=== PATIENT | male | born 2000 | race Caucasian/White ===

== ENCOUNTER 2023-06-09 21:22 | Inpatient (IN) | payer MEDICAID, OTHER ==
[~2023-06-09] VITALS: Ht 162.6 cm; Wt 102.0 kg
[2023-06-09] MEDS ORDERED: LORazepam 2 MG/ML VIAL ONE (22:01)
[2023-06-09] MEDS ORDERED: HALOPERIDOL LACTATE 5 MG/ML VIAL ONE (22:01)
[2023-06-09] MEDS ORDERED: DiphenhydrAMINE HCL 50 MG/ML VIAL ONE (22:01)
[2023-06-09] MEDS ORDERED: ARIP5TAB37 PO (22:09)
[2023-06-09] MEDS ORDERED: TRAZ-252 PO (22:09)
[2023-06-09] MEDS ORDERED: CLON0.1T PO (22:09)
[2023-06-09] MEDS ORDERED: HALOPERIDOL LACTATE 5 MG/ML VIAL IM ONE (22:15)
[2023-06-09] MEDS ORDERED: DiphenhydrAMINE HCL 50 MG/ML VIAL IM ONE (22:15)
[2023-06-09] MEDS ORDERED: LORazepam 2 MG/ML VIAL IM ONE (22:15)
[2023-06-09 23:16] LABS: COVID AG,FIA SOURCE NASAL SWAB
[2023-06-09 23:22] LABS: BASOPHILS % (AUTO) 0.3 % (0.0-2.0); EOSINOPHILS % (AUTO) 0.2 % (1.0-6.0); HEMATOCRIT 35.7 % (41-53); HEMOGLOBIN 11.9 g/dL (13.5-17.5); LYMPHOCYTES # (AUTO) 1.3 K/uL (1.0-4.8); LYMPHOCYTES % (AUTO) 8.5 % (22.0-44.0); MEAN CORPUSCULAR HEMOGLOBIN 28.3 pg (26.0-34.0); MEAN CORPUSCULAR HGB CONC 33.3 G/dL (31.0-37.0); MEAN CORPUSCULAR VOLUME 85 fL (80-100); MONOCYTES % (AUTO) 6.5 % (2.0-9.0); NEUTROPHILS % (AUTO) 84.5 % (40.0-70.0); PLATELET COUNT (AUTO) 362 K/uL (150-450); RED CELL DISTRIBUTION WIDTH 14.3 % (11.5-14.5); WHITE BLOOD COUNT (AUTO) 15.4 K/uL (4.5-11.0)
[2023-06-09 23:35] LABS: SARS-COV2 (COVID) ANTIGEN,FIA Negative (Negative)
[2023-06-09 23:39] LABS: ALCOHOL, BLOOD (SERUM) < 3 mg/dL (0-10)
[2023-06-10 00:18] LABS: ANION GAP 10 mmol/L (8-16); CALCIUM, TOTAL 9.2 mg/dL (8.8-10.5); CARBON DIOXIDE 27 mmol/L (22-29); CHLORIDE 109 mmol/L (98-107); CREATININE 0.84 mg/dL (0.60-1.30); GLOMERULAR FILTR. RATE CALC > 60 mL/min (>60); GLUCOSE,RANDOM 125 mg/dL (70-110); POTASSIUM 3.8 mmol/L (3.5-5.1); SODIUM SERUM 146 mmol/L (136-145); UREA NITROGEN, BLOOD 16 mg/dL (7-18)
[2023-06-10 00:25] LABS: ALANINE AMINOTRANSFERASE 81 U/L (12-78); ALBUMIN 3.7 g/dL (3.4-5.0); ALKALINE PHOSPHATASE 66 U/L (46-116); ASPARTATE AMINOTRANSFERASE 43 U/L (15-37); BILIRUBIN,TOTAL 0.2 mg/dL (0.1-1.0); TOTAL PROTEIN, SERUM 8.1 g/dL (6.4-8.2)
[2023-06-10] MEDS ORDERED: ZOLPIDEM TARTRATE 10 MG TABLET PO PRN (01:15)
[2023-06-10] MEDS ORDERED: HALOPERIDOL 5 MG TABLET PO PRN (01:15)
[2023-06-10] MEDS ORDERED: LORazepam 2 MG TABLET PO PRN (01:15)
[2023-06-11 23:07] VITALS: BP 157/85; PULSE 72; RESP 19; TEMP 97.3; O2SAT 97
[2023-06-11 23:31] VITALS: BP 157/85; PULSE 72; RESP 19; TEMP 97.3
[2023-06-11 23:39] VITALS: BP 157/85; PULSE 72; RESP 20; TEMP 97.3
[2023-06-12] MEDS: CloNIDine HCL 0.1 MG TABLET PO SCH ×2 (09:00→17:00)
[2023-06-12 09:46] VITALS: BP 150/88; PULSE 83; RESP 18; TEMP 97.8
[2023-06-12] MEDS: ARIPiprazole 10 MG TABLET PO SCH (14:00)
[2023-06-12] MEDS ORDERED: ACETAMINOPHEN 325 MG TABLET PO PRN (15:30)
[2023-06-12] MEDS ORDERED: PETROLATUM,WHITE 28 GM JELLY TP PRN (15:30)
[2023-06-12] MEDS ORDERED: DOCUSATE SODIUM 100 MG CAPSULE PO PRN (15:30)
[2023-06-12] MEDS ORDERED: ALBUTEROL SULFATE HFA 90 MCG/PUFF 8 GM INHALER IH PRN (15:30)
[2023-06-12] MEDS ORDERED: GuaiFENesin/D-METHORPHAN [SUGAR-FREE] 200-20MG/10 ML SYRUP UDCUP PO PRN (15:30)
[2023-06-12] MEDS ORDERED: IBUPROFEN 400 MG TABLET PO PRN (15:30)
[2023-06-12] MEDS ORDERED: ONDANSETRON HCL 4 MG TABLET PO PRN (15:30)
[2023-06-12] MEDS ORDERED: NICOTINE 14 MG/24 HOUR PATCH TD PRN (15:30)
[2023-06-12] MEDS ORDERED: MAGNESIUM HYDROXIDE SUSPENSION 30 ML UDCUP PO PRN (15:30)
[2023-06-12] MEDS ORDERED: MAG HYDROX/ALUMINUM HYD/SIMETH ES 30 ML SUSPENSION UDCUP PO PRN (15:30)
[2023-06-12] MEDS ORDERED: TraZODone HCL 50 MG TABLET PO SCH (21:00)
[2023-06-12 21:54] VITALS: RESP 18
[2023-06-13 07:21] LABS: HEMOGLOBIN A1C 6.4 % (3.8-5.6)
[2023-06-13 07:23] LABS: THYROID STIMULATING HORMONE 2.39 uIU/mL (0.36-3.74)
[2023-06-13 08:22] VITALS: BP 129/86; PULSE 80; RESP 16; TEMP 97.5
[2023-06-13] MEDS: CloNIDine HCL 0.1 MG TABLET PO SCH (08:34)
[2023-06-13] MEDS: ARIPiprazole 10 MG TABLET PO SCH (08:34)
[2023-06-13] MEDS ORDERED: TRAZ-252 PO (14:51)
[2023-06-13] MEDS ORDERED: ARIP10TA38 PO (14:51)
== END 2023-06-13 14:30 | disposition home or self-care (01) | DRG 750 ==
LOC: EMS 21:23 → 3EC 06-11 21:47
PROVIDERS: ADMIT Psychiatry & Neurology Child & Adolescent Psychiatry; ATTEND Psychiatry & Neurology Child & Adolescent Psychiatry
DX: F20.0 Paranoid schizophrenia (principal); E87.0 Hyperosmolality and hypernatremia; Q87.11 Prader-Willi syndrome; I10 Essential (primary) hypertension; R73.03 Prediabetes; Z20.822 Contact with and (suspected) exposure to COVID-19; D72.829 Elevated white blood cell count, unspecified; Z79.899 Other long term (current) drug therapy; Z91.011 Allergy to milk products
CPT/HCPCS: 80053; 83036; 84443; 85025; G0480; J1200; J1630; J2060